=== PATIENT | male | born 1980 | race Caucasian/White ===

== ENCOUNTER 2016-09-01 01:27 | Emergency (ER) | payer OTHER ==
[2016-09-01] MEDS ORDERED: TDaP 0.5 ML VIAL IM.VACC ONE (02:57)
[2016-09-01] MEDS ORDERED: Ibuprofen 400 MG TAB ONE (05:17)
== END 2016-09-01 05:28 | disposition home or self-care (01) ==
LOC: ER 01:27
DX: S06.0X0A Concussion without loss of consciousness, initial encounter (principal); S61.214A Laceration without foreign body of right ring finger without damage to nail, initial encounter; S00.12XA Contusion of left eyelid and periocular area, initial encounter; S00.11XA Contusion of right eyelid and periocular area, initial encounter; S00.212A Abrasion of left eyelid and periocular area, initial encounter; S00.211A Abrasion of right eyelid and periocular area, initial encounter; F10.129 Alcohol abuse with intoxication, unspecified; Y04.8XXA Assault by other bodily force, initial encounter; Y92.009 Unspecified place in unspecified non-institutional (private) residence as the place of occurrence of the external cause; F17.210 Nicotine dependence, cigarettes, uncomplicated
CPT/HCPCS: 36415; 70450; 70486; 71020; 72125; 80053; 80320; 85025; 90471